=== PATIENT | male | born 1995 | race Caucasian/White ===

== ENCOUNTER 2016-12-08 20:20 | Emergency (ER) | payer OTHER ==
[2016-12-08 20:24] VITALS: RESP 16
--- NOTE | 2016-12-08 21:24 | EDPHY ---
H & P Time Seen by Provider: 12/08/16 21:15 HPI/ROS: CHIEF COMPLAINT: Coughing, worried about albuterol overdose HISTORY OF PRESENT ILLNESS: Patient is had a cough for 5 days. He has got some green sputum and feels like he has mucus in his lungs. Associated with stuffy nose and feeling course. 2 days ago started using an albuterol inhaler yet for previous upper respiratory infection and has been doing 6-8 puffs a day for the last 2 days. Today feels like his heart is racing little bit. His shortness of breath is a little bit better but still has trouble working out. REVIEW OF SYSTEMS: Eye: no change in vision ENT: no sore throat Cardiac: no chest pain or syncope Pulmonary: HPI Abdomen: no vomiting, diarrhea, abdominal pain Musculoskeletal: no back pain or leg swelling Skin: no rash Neuro: no headache Constitutional: no fever : no urinary symptoms A comprehensive 10 point review of systems is otherwise negative aside from elements mentioned in the history of present illness. PAST MEDICAL HISTORY: Negative Social history: No tobacco smoking, no family history of venous thromboembolism , no travel for the last 3 months. General Appearance: Alert and conversant, cooperative. Eyes: No scleral icterus. ENT, Mouth: Normal mucous membranes. No angioedema. Uvula is normal. Respiratory: Very slight end-expiratory wheeze bilaterally but no rhonchi or rales, speaks in full sentences, no consolidation. Cardiovascular: Regular rate and rhythm. Gastrointestinal: Abdomen is soft and non tender. Neurological: Alert and oriented x3. Normally conversant. Face symmetric, normal movement and sensation in all extremities. Skin: No urticaria. Musculoskeletal: No peripheral edema and no joint swelling. No calf tenderness. Psychiatric: Not agitated. Emergency Department course/MDM: Patient tells me now he is mostly worried he overdosed on the albuterol. He is reassured that is unlikely. Likely has a upper respiratory infection that is viral and is improving without any specific treatment. Symptomatic treatment discussed. Antibiotics and further diagnostics I do not feel are indicated. Smoking Status: Never smoked Constitutional: Initial Vital Signs Temperature (C) 36.8 C 12/08/16 20:22 Heart Rate 79 12/08/16 20:22 Respiratory Rate 16 12/08/16 20:22 Blood Pressure 138/78 H 12/08/16 20:22 O2 Sat (%) 97 12/08/16 20:22 O2 Delivery Mode Room Air Allergies/Adverse Reactions: No Known Allergies Allergy (Verified 12/08/16 20:25) Home Medications: Medication Instructions Recorded NK [No Known Home Meds] 06/06/14 MDM/Departure - Depart Disposition: Home, Routine, Self-Care Clinical Impression: Upper respiratory infection Qualifiers: URI type: unspecified URI Qualified Code(s): J06.9 - Acute upper respiratory infection, unspecified Condition: Good Instructions: Upper Respiratory Infection (ED) Referrals: [facility],. [Clinic] - As per Instructions
[2016-12-08 21:30] VITALS: BP 124/76; PULSE 78; TEMP 97.9; O2SAT 96
== END 2016-12-08 21:30 | disposition home or self-care (01) ==
DX: J06.9 Acute upper respiratory infection, unspecified (principal)